=== PATIENT | female | born 1960 | race Caucasian/White ===

== ENCOUNTER 2016-05-17 21:51 | Emergency (ER) | payer OTHER ==
--- NOTE | 2016-05-17 22:42 | PROVIDER DOCUMENTATION ---
HPI-Musculoskeletal Pain/Inj - GENERAL Chief Complaint: Extremity Injury Stated Complaint: FALL @1900 LT KNEE INJURY Time Seen by Provider: 05/17/16 22:17 - HX OF PRESENT ILLNESS-MUSKULOSKELTAL Nature of Presenting Problem: Patient fell on left knee in the garage today. She didn't hit her head or have LOC. Review of Systems - Adult - REVIEW OF SYSTEMS - ADULT Constitutional: reports: no symptoms reported. denies: chills, fever, fatique, night sweats, weight gain Eyes: reports: no symptoms reported. denies: discharge, dry eyes, decreased vision, blurred vision, redness Ears, Nose, Mouth & Throat: reports: no symptoms reported. denies: ear discharge, hearing loss, epistaxis, sinus problem, mouth/dental pain, mouth swelling, hoarseness, throat swelling Cardiovascular: reports: no symptoms reported. denies: chest pain, edema, irregular heart rate, orthopnea, poor circulation, PND, syncope Respiratory: reports: no symptoms reported. denies: chronic cough, cough, dyspnea on exertion, excessive sputum production, hemoptysis, shortness of breath, wheezing Gastrointestinal: reports: no symptoms reported. denies: abdominal pain, hematemesis, constipation, diarrhea, frequent heartburn, poor appetite, rectal bleeding, vomiting Genitourinary: reports: no symptoms reported. denies: dysuria, discharge, frequency, flank pain, hematuria, hesitency, incontinence, urinary retention, urgency Musculoskeletal: reports: see HPI, bone pain, joint pain. denies: back pain, frequent leg cramps, joint swelling, muscle aches, muscle weakness, neck pain Integumentary: reports: see HPI, other (hematoma to left knee). denies: hives, hair loss, itching, mole changes, rash, skin sores/ulcer, skin thickening Neurological: reports: no symptoms reported. denies: ataxia, dizziness/vertigo , headache/migraines, loss of balance, numbness, seizure, syncope, tremors Psychiatric: reports: no symptoms reported. denies: anxiety, alcohol/drug dependence, depression, emotional problems, panic attacks, suicidal thoughts Endocrine: reports: no symptoms reported. denies: change in skin pigment, excessive sweating, cold intolerance, increased hunger, increased thirst Hematologic/Lymphatic: reports: no symptoms reported. denies: see HPI, easy bruising, low blood count, prolonged bleeding, swollen lymph nodes, transfusions Allergic/Immunologic: reports: no symptoms reported. denies: allergic reactions , allergic rhinitis, eczema, frequent infections, hives, positive PPD, urticaria All Other Systems: Reviewed and Negative Past History - Adult - PAST MEDICAL HISTORY-ADULT Review of Records: reports: Old Records Reviewed, Nursing Assessment Review, Medications Reviewed, Social history reviewed & non-contributory. Major Childhood Illnesses: reports: denies history Cardiovascular: reports: HTN Respiratory: reports: denies history Gastrointestinal: reports: denies history Obstetrical/Gynecological: reports: denies history Genitourinary: reports: denies history Musculoskeletal: reports: chronic pain (back and neck) Neurological: reports: denies history Endocrine/Immune: reports: denies history Other Conditions: reports: denies history - PRIOR SURGERIES/PROCEDURES Surgical/Procedure History: reports: back/neck - IMMUNIZATION STATUS Childhood Immunizations: See Nurse Assessment Flu Vaccine: See Nurse Assessment - FAMILY HISTORY Family History: reviewed, not pertinent - SOCIAL HISTORY Smoking: cigarettes, less than 1 pack/day Provider spent 3-5 mins advising pt. on dangers of tobacco.: Discussed manners to quit use, and f/u contacts for add'l counseling. Substance Use: none/never Alcohol Use Frequency: never Living Situation: family Physical Exam-Injury Related - Physical Exam-Injury Related Initial Vital Signs Reviewed: Yes General Appearance: appears well, alert, no apparent distress Eyes: PERRL/EOMI, pink conjunctivae Head, Ears, Nose, Mouth & Throat: normocephalic/atraumatic, moist mucous membranes, normal ENT inspection Neck: non-tender, full range of motion, supple, normal inspection Respiratory: chest non-tender, lungs clear, normal breath sounds, no pleuratic chest pain Cardiovascular: normal peripheral pulses, regular rate, rhythm Abdominal Exam: normal bowel sounds, non tender, soft Male Genitalia: deferred Back Exam: normal inspection, no CVA tenderness, no vertebral tenderness Extremity: normal range of motion, no pedal edema, no calf tenderness, erythema , inflammation, tenderness Integumentary: normal color, warm/dry, ecchymosis (left knee) 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 II-XII nml as tested, grossly normal Psych/Mental Status: normal mood/affect, normal thought content, normal thought process, oriented x 3 - Glascow Coma Score Best Eye Response (Abe): (4) open spontaneously Best Verbal Response (Abe): (5) oriented Best Motor Response (Galt): (6) obeys commands Progress - PLAN OF CARE/RESULTS Progress/Plan/Lab Results: Orders Category Date Time Status KNEE 3 VIEWS LEFT [RAD] Stat Exams 05/17/16 22:06 Taken Vital Signs - 24 hr 05/17/16 22:03 Temperature 99.1 F Pulse Rate 98 H Respiratory 18 Rate Blood Pressure 165/81 O2 Sat by Pulse 99 Oximetry Orders Category Date Time Status KNEE 3 VIEWS LEFT [RAD] Stat Exams 05/17/16 22:06 Taken Dexamethasone [Decadron] Med 05/17/16 22:43 Once 10 mg IM NOW ONE Hydrocodone/APAP 7.5 mg/325 mg [[place]-7.5] Med 05/17/16 22:43 Once 1 each PO NOW ONE Ketorolac [Toradol] Med 05/17/16 22:43 Once 30 mg IM NOW ONE - XRAY 1 XRAY: Left XRAY Study: Knee Impression: Normal XRAY Interpretation: Osteochondroma no fx or dislocation (hcb) Departure - Departure Time of Disposition Order: 22:43 DIAGNOSIS: Contusion of knee, left Qualifiers: Encounter type: initial encounter Qualified Code(s): S80.02XA - Contusion of left knee, initial encounter Disposition: HOME 01 Certified Medical Emergency: Emergent Condition: Good Additional Instructions: follow up with ortho ED Follow Up Instructions: You have been treated by a care provider in the Emergency Department. These instructions are being provided to you so you can have an understanding of how to care for yourself upon discharge. Upon discharge from the Emergency Department, you are responsible for making arrangements for follow-up care by a physician of your choice. Take all prescribed medications as directed. Return to the Emergency Department immediately for any new or worsening symptoms. You may call the Physician Referral phone number at [phone] to obtain a list of Physicians who are taking new patients. Prescriptions: Ibuprofen [Motrin] 800 mg PO Q8H PRN PRN #20 tablet PRN Reason: Pain Tramadol [Ultram] 50 mg PO Q6H PRN PRN #15 tablet PRN Reason: knee pain Omeprazole [Prilosec] 40 mg PO DAILY #20 capsule.dr Referrals: None,PCP [Primary Care Provider] - Keith Townsend MD [STAFF PHYSICIAN] - Attestation - Physician/ YSABEL Attestation Patient care was provided by Advanced Practice Provider:: Yes Advanced Practice Provider:: Marly Interiano Advanced Practice Provider documentation review:: The Mid-level provider documentation, treatment plan and medical decision making was reviewed by the physician who agrees with all treatment and medical decision making by the MLP.
[2016-05-17] MEDS ORDERED: TORADOL IM ONE (22:43)
[2016-05-17] MEDS ORDERED: NORCO-7.5 PO ONE (22:43)
[2016-05-17] MEDS ORDERED: DECADRON IM ONE (22:43)
[2016-05-17 23:31] VITALS: BP 146/75
--- NOTE | 2016-05-18 07:47 | Diag Imaging Result Document ---
PROCEDURE NAME: KNEE 3 VIEWS LEFT - 05/17/2016 LEFT KNEE, THREE VIEWS: FINDINGS: No fracture. No dislocation. There is an area of a sclerosis in the distal femoral shaft likely representing a bone infarct or bone island. IMPRESSION: No acute bony injury.
== END 2016-05-17 23:31 | disposition home or self-care (01) ==
LOC: ED 21:51
DX: S80.02XA Contusion of left knee, initial encounter (principal); M25.562 Pain in left knee; I10 Essential (primary) hypertension; G89.29 Other chronic pain; M54.9 Dorsalgia, unspecified; M54.2 Cervicalgia; F17.210 Nicotine dependence, cigarettes, uncomplicated; Z71.6 Tobacco abuse counseling; W19.XXXA Unspecified fall, initial encounter
CPT/HCPCS: J1885